=== PATIENT | female | born 1985 | race Caucasian/White ===

== ENCOUNTER 2021-10-19 13:13 | Emergency (ER) | payer OTHER ==
[2021-10-19] MEDS ORDERED: Acetaminophen 325 MG TAB ONE (14:19)
[2021-10-19 16:08] LABS: Bilirubin Negative (Negative); Blood, Urine Negative (Negative); Glucose, Urine (Dipstick) Negative (Negative); Ketone, Urine 15 mg/dL (Negative); Leukocyte Negative (Negative); Nitrite Negative (Negative); Protein, Urine (Dipstick) Trace mg/dL (Neg-Trace); Specific Gravity, Urine 1.025 (1.005-1.030); Urobilinogen 0.2 mg/dL (Less than 2); pH, Urine 7.5 (5.0-9.0)
[2021-10-19 16:12] LABS: Clarity Hazy (Clear)
== END 2021-10-19 16:40 | disposition home or self-care (01) ==
LOC: BURERS 13:13
DX: O98.511 Other viral diseases complicating pregnancy, first trimester (principal); U07.1 COVID-19; Z3A.11 11 weeks gestation of pregnancy
CPT/HCPCS: 81003; 87804; U0003; U0005